=== PATIENT | female | born 1975 | race Caucasian/White ===

== ENCOUNTER → 2018-05-12 | Outpatient (CLI) | payer OTHER ==
--- NOTE | 2018-05-12 12:37 | RAD ---
Pelvic ultrasound, 05/12/2018: HISTORY: Pelvic pain, intermittent dyspareunia The uterus is surgically absent. The ovaries were best demonstrated on the transvaginal scans. They are both within normal limits in size. There is a 1 x 2 x 2 cm simple cyst in the right ovary. Several small follicular cysts are present in the left ovary. Blood flow is present in both ovaries. The adnexal regions are otherwise unremarkable. A small amount of free fluid is present in the cul-de-sac. This amount of fluid can be on a physiologic basis. IMPRESSION: 1. Status post hysterectomy. 2. Small right ovarian cyst. 3. Small amount of free fluid in the pelvis. Electronically signed by: Tyler French MD (05/12/2018 12:34 PM) [facility]
== END | disposition home or self-care (01) ==
LOC: US 08:39
PROVIDERS: ATTEND Obstetrics & Gynecology
DX: N83.201 Unspecified ovarian cyst, right side (principal); Z90.710 Acquired absence of both cervix and uterus
CPT/HCPCS: 76830; 76856

== ENCOUNTER 2021-04-04 13:08 | Emergency (ER) | payer OTHER ==
[~2021-04-04] VITALS: Ht 167.6 cm; Wt 91.0 kg
[2021-04-04 13:35] LABS: BASO # 0.1 x10^3/uL (0.0-0.2); BASO % 1 % (0-3); EOS # 0.1 x10^3/uL (0.0-0.7); EOS % 2 % (0-3); HEMATOCRIT 41.9 % (36.0-47.0); HEMOGLOBIN 13.8 g/dL (12.0-15.5); LYMPH % 37 % (24-48); MEAN CORPUSCULAR HEMOGLOBIN 32 pg (25-35); MEAN CORPUSCULAR HGB CONC 33 g/dL (31-37); MEAN CORPUSCULAR VOLUME 96 fL (79-100); MONO # 0.4 x10^3/uL (0.0-1.1); MONO % 8 % (0-9); NEUT # 2.7 x10^3uL (1.8-7.7); NEUT % 52 % (31-73); PLATELET COUNT 279 x10^3/uL (140-400); RED BLOOD COUNT 4.36 x10^6/uL (3.50-5.40); WHITE BLOOD COUNT 5.2 x10^3/uL (4.0-11.0)
--- NOTE | 2021-04-04 13:38 | PHYS DOC ---
Past History Past Surgical History: Hysterectomy, Tonsillectomy, Other Additional Past Surgical Histo: BREAST AUGMENTATION General Adult EDM: Chief Complaint: CHEST PAIN HPI: HPI: 46-year-old female presents with chest pain. The patient's been having intermittent chest pain for about 2 weeks since getting her Pfizer COVID-19 booster. She presents today because the pain has been more frequent and persistent the last couple of days. Patient denies any increased or unusual activity from normal. The chest pain is a tightness that radiates on the right side and sometimes the right shoulder. He feels like she might have occasional, very mild shortness of breath. She denies diaphoresis or disruption of daily activities. No history of heart problems. She had a stress test once in the past which was reported to be normal. Denies fever or chills. She has no other complaints this time. Review of Systems: Review of Systems: Constitutional: Denies fever or chills Eyes: Denies change in visual acuity HENT: Denies nasal congestion or sore throat Respiratory: Denies cough or shortness of breath Cardiovascular: Chest pain GI: Denies abdominal pain, nausea, vomiting, bloody stools or diarrhea : Denies dysuria Musculoskeletal: Denies back pain or joint pain Integument: Denies rash Neurologic: Denies headache, focal weakness or sensory changes Endocrine: Denies polyuria or polydipsia Lymphatic: Denies swollen glands Psychiatric: Denies depression or anxiety Allergies: Allergies: Allergies Coded Allergies Type Severity Reaction Last Updated Verified No Known Drug Allergies 04/04/21 No Physical Exam: PE: Constitutional: Well developed, well nourished, obese, no acute distress, non- toxic appearance. [] HENT: Normocephalic, atraumatic, bilateral external ears normal, oropharynx moist, no oral exudates, nose normal. [] Eyes: PERRLA, EOMI, conjunctiva normal, no discharge. [] Neck: Normal range of motion, no tenderness, supple, no stridor. [] Cardiovascular: Heart rate 71, regular rhythm, no murmur [] Lungs & Thorax: Bilateral breath sounds clear to auscultation [] Abdomen: Bowel sounds normal, soft, no tenderness, no masses, no pulsatile masses. [] Skin: Warm, dry, no erythema, no rash. [] Back: No tenderness, no CVA tenderness. [] Extremities: No tenderness, no cyanosis, no clubbing, ROM intact, no edema. [] Neurologic: Alert and oriented X 3, normal motor function, normal sensory function, no focal deficits noted. [] Psychologic: Affect normal, judgement normal, mood normal. [] Current Patient Data: Vital Signs: Vital Signs Date Time Temp Pulse Resp B/P (MAP) Pulse Ox O2 Delivery O2 Flow Rate FiO2 04/04/21 13:15 98.1 83 18 144/92 (109) 96 Room Air EKG: EKG: Sinus rhythm, rate 71, normal axis, no ST elevation or depression.[] Radiology/Procedures: Radiology/Procedures: [] Impressions: EXAM: Chest, single view. HISTORY: Chest pain. COMPARISON: None. FINDINGS: A frontal view of the chest is obtained. There is no infiltrate, pleural effusion or pneumothorax. The heart is normal in size. IMPRESSION: No acute pulmonary finding. Electronically signed by: Temitope Peña MD (04/04/2021 1:40 PM) [id number] DICTATED AND SIGNED BY: TEMITOPE PEÑA MD DATE: 04/04/21 1340 CC: LISA GUZMAN DO; TWIN DAS DO, M[facility] ~MTH0 0 Heart Score: C/O Chest Pain: Yes HEART Score for Chest Pain: HEART Score for Chest Pain Response (Comments) Value History Slighlty/Non-Suspicious 0 ECG Nonspecific Repolarizatio 1 Age >45 - < 65 1 Risk Factors 1 or 2 Risk Factors 1 Total 3 Risk Factors: Risk Factors: DM, Current or recent (<one month) smoker, HTN, HLP, family history of CAD, obesity. Risk Scores: Score 0 - 3: 2.5% MACE over next 6 weeks - Discharge Home Score 4 - 6: 20.3% MACE over next 6 weeks - Admit for Clinical Observation Score 7 - 10: 72.7% MACE over next 6 weeks - Early Invasive Strategies Course & Med Decision Making: Course & Med Decision Making Pertinent Labs and Imaging studies reviewed. (See chart for details) The patient's EKG shows possible Q waves in the anteroseptal leads, but this is likely lead placement or issues regarding the quality of our machine. Patient's chest x-ray is negative for acute findings. Her labs are unremarkable. Her troponin is normal. I do not believe this is cardiopulmonary in nature at this time. She continues to have symptoms she needs to follow-up with her primary care physician. She is stable for discharge at this time. [] Kareen Disclaimer: Kareen Disclaimer: This electronic medical record was generated, in whole or in part, using a voice recognition dictation system. Departure Departure: Impression: Primary Impression: Chest pain Qualified Codes: R07.9 - Chest pain, unspecified Disposition: HOME / SELF CARE / HOMELESS Condition: STABLE Referrals: TWIN DAS DO, M[facility] (PCP) Patient Instructions: Chest Pain (Nonspecific), [id number] LISA GUZMAN DO Apr 04, 2021 13:38
--- NOTE | 2021-04-04 13:43 | RAD ---
EXAM: Chest, single view. HISTORY: Chest pain. COMPARISON: None. FINDINGS: A frontal view of the chest is obtained. There is no infiltrate, pleural effusion or pneumo thorax. The heart is normal in size. IMPRESSION: No acute pulmonary finding. Electronically signed by: Temitope Peña MD (04/04/2021 1:40 PM) [id number]
[2021-04-04 13:46] LABS: CALCIUM 8.9 mg/dL (8.5-10.1); CREATININE 0.9 mg/dL (0.6-1.0); GFR 66.8
[2021-04-04 13:52] LABS: ALBUMIN 3.9 g/dL (3.4-5.0); TOTAL BILIRUBIN 0.2 mg/dL (0.2-1.0); TOTAL PROTEIN 7.8 g/dL (6.4-8.2)
[2021-04-04 14:08] VITALS: BP 119/61
--- NOTE | 2021-04-04 14:23 | EKG ---
[address] [address] Test Date: 2021-04-04 Test Time: 13:19:44 Pat Name: LUCAS CROWLEY Department: Room: Gender: F [employer]: SUHAIL : 1975 Requested By: LISA GUZMAN Order Number: [id number] Reading MD: Gaudencio Quinonez Measurements Intervals [place] Rate: 71 P: 57 MS: 174 QRS: 19 QRSD: 72 T: 25 QT: 394 QTc: 433 Interpretive Statements SINUS RHYTHM QRS(T) CONTOUR ABNORMALITY CONSISTENT WITH ANTEROSEPTAL INFARCT PROBABLY OLD ABNORMAL ECG RI6.02 No previous ECG available for comparison Electronically Signed On 04-06-2021 9:27:32 [employer] HEL[employer] by Gaudencio Quinonez
== END 2021-04-04 14:09 | disposition home or self-care (01) ==
LOC: ER 13:08
DX: R07.89 Other chest pain (principal)
CPT/HCPCS: 36415; 71045; 80053; 84484; 85025; 93005; 99285